=== PATIENT | female | born 1985 | race Hispanic/Latino ===

== ENCOUNTER 2017-11-30 18:37 | Emergency (ER) | payer BC, MEDICAID ==
[2017-11-30 18:48] VITALS: BP 149/101; RESP 16; TEMP 98.1
[2017-11-30 18:49] VITALS: PULSE 96; O2SAT 98
[2017-11-30] MEDS ORDERED: Iohexol 240 (50 ml) PO ONE (19:39)
--- NOTE | 2017-11-30 19:58 | ED PDOC ---
HPI: Abdomen Time Seen by Provider: 11/30/17 19:20 Chief Complaint (Nursing): Abdominal Pain Chief Complaint (Provider): Abdominal Pain History Per: Patient History/Exam Limitations: no limitations Onset/Duration Of Symptoms: Days (x2) Current Symptoms Are (Timing): Still Present Additional Complaint(s): 32 year old female with a past medical history of Crohn's disease, who presents to the ED complaining of abdominal pain x2 days. Patient states pain is constant and mostly in LLQ. Also noted bloody stools with bright red blood every time she had a bowel movement. Reports bloody diarrhea, denies vomiting or fevers. Of note, patient mentioned this is how her Crohn's flare ups typically present. States she has not been symptomatic for months. Reports setting up a future appointment with Dr. Tenorio. States she saw a Allergist/Immunologist in [place] where she is originally from. Reports having a colonoscopy 6 months ago which showed her Crohn's. States she is not currently on any medication, but reports taking medication in the past. Against Medical Advice - AMA Patient Left Against Medical Advice: The patient declines admission to the hospital and wishes to leave the Emergency Department. This action is against my medical advice. This decision was made with informed refusal. The patient was told that admission to the hospital is necessary. Explanation of the reasons why were discussed. The risks of leaving were explained to the patient and include, but are not limited to, worsening of known or currently unknown conditions, permanent disability and from undiagnosed or untreated conditions. The patient has the capacity to make this informed decision and understands my explanation of the current medical problem and risks of leaving. The patient voluntarily accepts these risks and signed an AMA form documenting our conversation. The patient was given the opportunity to ask questions and reconsider. The patient was encouraged to return to the Emergency Department at any time for further care. Past Medical History Reviewed: Historical Data, Nursing Documentation, Vital Signs Vital Signs: Last Vital Signs Temp 98.1 F 11/30/17 18:47 Pulse 96 H 11/30/17 18:47 Resp 16 11/30/17 18:47 BP 149/101 H 11/30/17 18:47 Pulse Ox 98 11/30/17 22:42 - Medical History PMH: Anxiety, Crohn's Disease - Surgical History Surgical History: No Surg Hx - Family History Family History: States: No Known Family Hx Other Family History: IBS - Social History Current smoker - smoking cessation education provided: No Alcohol: None Drugs: Denies - Immunization History Hx Tetanus Toxoid Vaccination: Yes Hx Influenza Vaccination: Yes Hx Pneumococcal Vaccination: Yes - Home Medications Home Medications: Ambulatory Orders Medication Instructions Recorded Mesalamine [Lialda] 1.2 gm PO DAILY 04/06/15 Docusate [Colace] 100 mg PO BID #60 cap 04/20/15 Magnesium Citrate [Good Neighbor 300 ml PO ONCE PRN #1 bottle 04/20/15 Pharmacy Magnesium Citrate] Oxycodone HCl/Acetaminophen 1 tab PO Q8 PRN 04/20/15 [Percocet 325 mg-5 mg] - Allergies Allergies/Adverse Reactions: Allergies Allergy/AdvReac Type Severity Reaction Status Date / Time No Known Allergies Allergy Verified 11/30/17 18:47 Review of Systems ROS Statement: Except As Marked, All Systems Reviewed And Found Negative Constitutional: Negative for: Fever Gastrointestinal: Positive for: Abdominal Pain, Diarrhea, Hematochezia. Negative for: Vomiting Physical Exam - Reviewed Nursing Documentation Reviewed: Yes Vital Signs Reviewed: Yes - Physical Exam Appears: Positive for: Non-toxic, No Acute Distress (comfortable) Head Exam: Positive for: ATRAUMATIC, NORMAL INSPECTION, NORMOCEPHALIC Skin: Positive for: Normal Color, Warm, Dry. Negative for: Rash Eye Exam: Positive for: EOMI, Normal appearance, PERRL Neck: Positive for: Normal, Painless ROM, Supple Cardiovascular/Chest: Positive for: Regular Rate, Rhythm. Negative for: Murmur Respiratory: Positive for: Normal Breath Sounds. Negative for: Respiratory Distress Gastrointestinal/Abdominal: Positive for: Soft, Tenderness (LLQ), Distended ( mild) Back: Positive for: Normal Inspection. Negative for: L CVA Tenderness, R CVA Tenderness, Vertebral Tenderness Extremity: Positive for: Normal ROM. Negative for: Pedal Edema, Deformity Neurologic/Psych: Positive for: Alert, Oriented (x3). Negative for: Motor/ Sensory Deficits - Laboratory Results Result Diagrams: 11/30/17 20:30 11/30/17 20:30 - ECG O2 Sat by Pulse Oximetry: 98 (RA) Pulse Ox Interpretation: Normal Medical Decision Making Medical Decision Making: Time: 18:41 Initial Impression: Abdominal pain and bloody stools. Differential diagnoses include, but are not limited to Crohn's disease flare, diverticulitis, colitis, r/o complications of Crohn's disease Initial Plan: --Blood type and screen --CT Abdomen and Pelvis --CMP --Lipase --CBC w/ differential --ESR --PTT/PT --Iohexol 50ml PO --Solu-Medrol 125mg IVP --Ultram 50mg PO --IV Insertion --Reevaluation Time: 10:40 CT ABDOMEN AND PELVIS FINDINGS: Lower thorax: Linear atelectasis/scarring RIGHT middle lobe. ABDOMEN: Liver: Few punctate calcifications. Gallbladder and bile ducts: No calcified stones. No ductal dilation. Pancreas: Atrophy of pancreas. No ductal dilation. Spleen: Mild splenomegaly, AP dimension. Adrenals: No mass. Kidneys and ureters: No mass. No hydronephrosis. Stomach and bowel: No definite mural thickening. No obstruction. Appendix: Normal caliber. No inflammation. PELVIS: Bladder: Unremarkable. Reproductive: 2.4 x 2.8 x 2.9 cm right adnexal lesion containing fat, calcification, soft tissue elements. 2.1 x 1.3 x 1.8 cm left adnexal lesion containing fat. 2.0 x 2.0 x 2.0 cm hypodense lesion within LEFT ovary. ABDOMEN and PELVIS: Intraperitoneal space: No significant fluid collection. No free air. Bones/joints: No acute fracture. Soft tissues: Unremarkable. Vasculature: Unremarkable. No aneurysm. Lymph nodes: No pathologically enlarged lymph nodes. IMPRESSION: 1. Probable LEFT ovarian cyst. Consider ultrasound. 2. Bilateral ovarian dermoids. 3. Incidental/non-acute findings are described above. Scribe Attestation: Documented by Mert Hyman, acting as a scribe for Jaime Monahan MD. Provider Scribe Attestation: All medical record entries made by the Scribe were at my direction and personally dictated by me. I have reviewed the chart and agree that the record accurately reflects my personal performance of the history, physical exam, medical decision making, and the department course for this patient. I have also personally directed, reviewed, and agree with the discharge instructions and disposition. Disposition - Clinical Impression Clinical Impression: Abdominal pain, Crohn disease, Left against medical advice - Patient ED Disposition Is Patient to be Admitted: No Counseled Patient/Family Regarding: Studies Performed, Diagnosis - Disposition Referrals: Car Tenorio MD [Medical Doctor] - Disposition: Against Medical Advice Disposition Time: 22:27 Condition: IMPROVED Additional Instructions: Return for worsening. Follow up with your PCP in 2-3 days. Instructions: Acute Abdomen (Belly Pain), Inflammatory Bowel Disease (DC), Leaving Against Medical Advice
[2017-11-30] MEDS ORDERED: Iohexol 240 (50 ml) ONE (20:07)
[2017-11-30 20:39] LABS: BASO % 0.1 % (0.0-2.0); HEMOGLOBIN 11.3 g/dL (12.0-16.0); LYMPH # 1.8 K/uL (1.0-4.3); LYMPH % 20.9 % (20.0-40.0); MEAN CELL VOLUME 102.4 fl (81.0-99.0); MEAN CORPUSCULAR HEMOGLOBIN 35.4 pg (27.0-31.0); MEAN CORPUSCULAR HGB CONC 34.6 g/dL (33.0-37.0); MONO # 0.7 K/uL (0.0-0.8); MONO % 7.7 % (0.0-10.0); NEUT # 6.2 K/uL (1.8-7.0); NEUT % 71.3 % (50.0-75.0); RBC 3.19 Mil/uL (3.80-5.20); RED CELL DISTRIBUTION WIDTH 13.6 % (11.5-14.5); WHITE BLOOD COUNT 8.7 K/uL (4.8-10.8)
[2017-11-30 20:57] LABS: ALB/GLOB RATIO 1.3 (1.0-2.1); ALBUMIN 4.3 g/dL (3.5-5.0); ALT/SGPT 63 U/L (9-52); AST/SGOT 40 U/L (14-36); BLOOD UREA NITROGEN 12 mg/dl (7-17); CALCIUM 9.5 mg/dL (8.4-10.2); GFR AFRICAN-AMERICAN > 60; GFR NON-AFRICAN AMERICAN > 60; LIPASE 17 U/L (23-300)
[2017-11-30 21:02] LABS: INR 1.1 (0.9-1.2); PARTIAL THROMBOPLASTIN TIME 32.3 Seconds (25.6-37.1); PROTHROMBIN TIME 11.7 Seconds (9.8-13.1)
[2017-11-30] MEDS ORDERED: Iohexol 300 100 ML IJ ONE (21:16)
[2017-11-30] MEDS ORDERED: Sodium Chloride 0.9% 100 ML ONE (21:17)
--- NOTE | 2017-11-30 22:41 | CT ---
EXAM: CT Abdomen and Pelvis With Intravenous Contrast CLINICAL HISTORY: 32 years old, female; Pain; Abdominal pain; Localized; Left lower quadrant (llq); Patient HX: Patient states: HX of crohn's since age 5; Additional info: Abdominal pain bloody stools crohns dx. Sent phy. Doc. TECHNIQUE: Axial computed tomography images of the abdomen and pelvis with intravenous contrast. Coronal and sagittal reformatted images were created and reviewed. CONTRAST: 95 mL of [id number] administered intravenously. COMPARISON: No relevant prior studies available. FINDINGS: Lower thorax: Linear atelectasis/scarring RIGHT middle lobe. ABDOMEN: Liver: Few punctate calcifications. Gallbladder and bile ducts: No calcified stones. No ductal dilation. Pancreas: Atrophy of pancreas. No ductal dilation. Spleen: Mild splenomegaly, AP dimension. Adrenals: No mass. Kidneys and ureters: No mass. No hydronephrosis. Stomach and bowel: No definite mural thickening. No obstruction. Appendix: Normal caliber. No inflammation. PELVIS: Bladder: Unremarkable. Reproductive: 2.4 x 2.8 x 2.9 cm right adnexal lesion containing fat, calcification, soft tissue elements. 2.1 x 1.3 x 1.8 cm left adnexal lesion containing fat. 2.0 x 2.0 x 2.0 cm hypodense lesion within LEFT ovary. ABDOMEN and PELVIS: Intraperitoneal space: No significant fluid collection. No free air. Bones/joints: No acute fracture. Soft tissues: Unremarkable. Vasculature: Unremarkable. No aneurysm. Lymph nodes: No pathologically enlarged lymph nodes. IMPRESSION: 1. Probable LEFT ovarian cyst. Consider ultrasound. 2. Bilateral ovarian dermoids. 3. Incidental/non-acute findings are described above.
== END 2017-11-30 23:32 | disposition left against medical advice (07) ==
LOC: H.ER 18:37
DX: R10.32 Left lower quadrant pain (principal); K50.911 Crohn's disease, unspecified, with rectal bleeding
CPT/HCPCS: 74177; 80053; 81025; 83690; 85025; 85610; 85651; 85730; 86850; 86900; 96374; 96375; 99285; J1885; J2405; J2930; Q9966; Q9967

== ENCOUNTER 2018-03-23 18:47 | Emergency (ER) | payer MEDICAID ==
[2018-03-23 19:48] VITALS: BP 147/91; PULSE 96; RESP 18; TEMP 98; O2SAT 100
--- NOTE | 2018-03-23 20:33 | ED PDOC ---
HPI: Psych/Substance Abuse Time Seen by Provider: 03/23/18 20:12 Chief Complaint (Nursing): Med Refill Chief Complaint (Provider): Psych Eval History Per: Patient History/Exam Limitations: no limitations Onset/Duration Of Symptoms: Hrs (today) Current Symptoms Are (Timing): Still Present Additional Complaint(s): 32 year old female presents to the ED for psychiatric evaluation/medication refill. She reports recently joining [facility] to stop abusing benzos , and they recommended she come here for evaluation as she does not have a psychiatrist. Patient reports she cannot sleep at night, feels anxious, and feels like she is "crawling out of her skin". Patient is also requesting an Adderall prescription at this time. No other complaints reported. (-) SI (-) HI (-) auditory or visual hallucinations LNMP: one month ago PMD: none provided Past Medical History Reviewed: Historical Data, Nursing Documentation, Vital Signs Vital Signs: Last Vital Signs Temp 98.0 F 03/23/18 19:46 Pulse 96 H 03/23/18 19:46 Resp 18 03/23/18 19:46 BP 147/91 H 03/23/18 19:46 Pulse Ox 100 03/23/18 19:46 - Medical History PMH: Anxiety, Crohn's Disease, Depression Other PMH: ADHD - Surgical History Surgical History: No Surg Hx - Family History Family History: States: Unknown Family Hx - Social History Current smoker - smoking cessation education provided: Yes (3 cigarettes daily) Alcohol: None Drugs: Other (benzos) - Home Medications Home Medications: Ambulatory Orders Medication Instructions Recorded Dextroamphetamine/Amphetamine 30 mg PO DAILY 02/23/18 [Adderall 30 mg Tablet] Mirtazapine [Remeron] 30 mg PO HS 02/23/18 Zolpidem [Ambien] 10 mg PO HS 02/23/18 - Allergies Allergies/Adverse Reactions: Allergies Allergy/AdvReac Type Severity Reaction Status Date / Time No Known Allergies Allergy Verified 03/23/18 19:45 Review of Systems ROS Statement: Except As Marked, All Systems Reviewed And Found Negative Constitutional: Positive for: Other (the feeling of "crawling out of her skin") Psych: Positive for: Anxiety Physical Exam - Reviewed Nursing Documentation Reviewed: Yes Vital Signs Reviewed: Yes - Physical Exam Comments: GENERAL APPEARANCE: Patient is awake, alert, oriented x 3, in no acute distress. SKIN: Warm, dry; (-) cyanosis EYES: (-) nystagmus. ENMT: Mucous membranes moist. Airway patent: (-) stridor. NECK: Supple, FROM HEART AND CARDIOVASCULAR: (-) irregularity; (-) murmur, (-) gallop. CHEST AND RESPIRATORY: (-) rales, (-) rhonchi, (-) wheezes; breath sounds equal bilaterally. Respirations even and nonlabored, speaking in full sentences. ABDOMEN: Soft, (-) distention, (-) tenderness, (-) guarding. NEURO AND PSYCH: Mental status as above. corral boss: Intact. Pupils equal and reactive ; EOMI and painless; (-) facial asymmetry; Gait steady, speech clear. - Laboratory Results Urine POC: Negative - ECG O2 Sat by Pulse Oximetry: 100 (RA) Pulse Ox Interpretation: Normal Medical Decision Making Medical Decision Making: Time: 20:19 Initial Impression: psychiatric evaluation, medication refill Initial Plan: --Crisis eval --Re-evaluation --Upreg --Urine Drug Screen 2114 Urine drug screen reviewed. Per crisis evaluation, patient stable for discharge and outpatient follow up with the diagnosis of adjustment disorder per Dr Riley. Rx not to be supplied to patient at this time. On exam, patient remains AAOx3, in no acute distress. Neck is supple, lungs CTA , cardiac RRR, neuro exam shows no focal findings. Patient agitated that Rx Adderall will not be provided at this time. VSS, stable for discharge. Diagnostic results d/w the patient in great detail. Dx of adjustment disorder, medication refill d/w the patient. Based on history, exam and diagnostic results plan will be for discharge and outpatient follow up. Patient refusing to sign discharge papers at this time. Advised to follow up with primary care physician/clinic in 1-2 days without fail. Return to the emergency room at any time for any new or worsening symptoms. I have given the patient opportunity to ask any additional questions. Scribe Attestation: Documented by Brii Antony, acting as a scribe for Klaudia Morelos PA-C. Provider Scribe Attestation: All medical record entries made by the Scribe were at my direction and personally dictated by me. I have reviewed the chart and agree that the record accurately reflects my personal performance of the history, physical exam, medical decision making, and the department course for this patient. I have also personally directed, reviewed, and agree with the discharge instructions and disposition. Disposition - Clinical Impression Clinical Impression: Medication refill, Adjustment disorder - Patient ED Disposition Is Patient to be Admitted: No Counseled Patient/Family Regarding: Diagnosis, Need For Followup - Disposition Referrals: [facility] [Outside] [facility] [Outside] Disposition: Routine/Home Disposition Time: 21:15 Condition: FAIR Additional Instructions: FOLLOW UP WITH CLINIC IN 1-2 DAYS WITHOUT FAIL. RETURN TO ED WITH ANY NEW OR WORSENING SYMPTOMS. Instructions: Adjustment Disorder Forms: im3D (Ukrainian) Print Language: BERMUDIAN - POA Present On Arrival: None Results - Lab Results Lab Results: 03/23/18 20:40 Urine Opiates Screen Negative Urine Methadone Screen Negative Ur Barbiturates Screen Negative Ur Phencyclidine Scrn Negative Ur Amphetamines Screen Positive H U Benzodiazepines Scrn Negative U Oth Cocaine Metabols Negative U Cannabinoids Screen Negative
[2018-03-23 21:18] LABS: BENZODIAZEPINES, UR NEGATIVE (NEGATIVE)
[2018-03-23 21:19] LABS: BARBITURATES, UR NEGATIVE (NEGATIVE); OPIATES, UR NEGATIVE (NEGATIVE); PHENCYCLIDINE, UR NEGATIVE (NEGATIVE)
== END 2018-03-23 21:17 | disposition home or self-care (01) ==
LOC: H.ER 18:47
DX: Z76.0 Encounter for issue of repeat prescription (principal); F43.22 Adjustment disorder with anxiety; F90.9 Attention-deficit hyperactivity disorder, unspecified type; F32.9 Major depressive disorder, single episode, unspecified; K50.90 Crohn's disease, unspecified, without complications